=== PATIENT | female | born 1960 | race Caucasian/White ===

== ENCOUNTER 2018-03-09 01:07 | Outpatient (CLI) | payer OTHER, SELFPAY ==
--- NOTE | 2018-03-09 14:05 | MERGE_ITS ---
*[facility]* *[facility]* [address] [place] [address] Date of study: 03/09/2018 Transthoracic Echocardiography M-mode, complete 2D, complete spectral Doppler, and color Doppler *STUDY CONCLUSIONS* Summary: 1. Left ventricle: The cavity size was normal. Systolic function was hyperdynamic. The estimated ejection fraction was 65-70%. Diastolic parameters were normal. 2. Aortic valve: There was mild regurgitation. 3. Mitral valve: There was mild regurgitation. 4. Left atrium: The atrium was mildly dilated. 5. Right ventricle: The cavity size was normal. Wall thickness was normal. Systolic function was normal. 6. Atrial septum: No defect or patent foramen ovale was identified. 7. Tricuspid valve: There was mild-moderate regurgitation. 8. Pulmonary arteries: Pulmonary systolic pressure was in the range of 25mm Hg to 35mm Hg. 9. Inferior vena cava: The vessel was patent and normal in size. The respirophasic diameter changes were in the normal range (greater than or equal to 50%), consistent with normal central venous pressure. *PATIENT PRESENTATION* Height: 162.6cm ((64in) ) S/D Pressure: 123 / 83 Weight: 67.1kg ((147.7lb) ) BSA: 1.75m^2 Test start time: 02:30 PM. Test stop time: 03:30 PM. PERFORMING Unknown REFERRING Leon Mary PERFORMING [facility] GR[employer] LAP Luzma Gomez RT (R)(CT), [facility] ORDERING Mateus Heller REFERRING Mateus Heller *PROCEDURE DATA* Procedure information: The patient was identified by two identifiers. This study was interpreted by [facility]. Pertinent images and digital data are archived for permanent storage and are available for subsequent review. No prior study was available for comparison. Study status: Routine. Transthoracic echocardiography. M-mode, complete 2D, complete spectral Doppler, and color Doppler. A Transthoracic Echocardiogram was performed. Scanning was performed from the parasternal, apical, subcostal, and suprasternal notch acoustic windows. Images were obtained using an [id number] cardiac ultrasound machine. Image quality was adequate. Study completion: The patient tolerated the procedure well. History: PMH: Eval cardiac anatomy and function prior to EP study and SVT ablation. supraventricular tachycardia. *CARDIAC ANATOMY* Left ventricle: The cavity size was normal. Systolic function was hyperdynamic. The estimated ejection fraction was 65-70%. Diastolic parameters were normal. There was no evidence of elevated ventricular filling pressure by Doppler parameters. Aortic valve: Trileaflet. Doppler: There was no stenosis. There was mild regurgitation. VTI ratio of LVOT to aortic valve: 0.64. Valve area (VTI): 2cm^2. Indexed valve area (VTI): 1.2cm^2/m^2. Peak velocity ratio of LVOT to aortic valve: 0.63. Valve area (Vmax): 2cm^2. Indexed valve area (Vmax): 1.1cm^2/m^2. Mean velocity ratio of LVOT to aortic valve: 0.66. Valve area (Vmean): 2.1cm^2. Indexed valve area (Vmean): 1.2cm^2/m^2. Mean gradient (S): 4.9mm Hg. Peak gradient (S): 8.2mm Hg. Aorta: Aortic root: The aortic root was normal in size. Ascending aorta: The ascending aorta was normal in size. Mitral valve: Doppler: There was no evidence for stenosis. There was mild regurgitation. Valve area by pressure half-time: 6cm^2. Indexed valve area by pressure half-time: 3.4cm^2/m^2. Peak gradient (D): 4mm Hg. Left atrium: The atrium was mildly dilated. Atrial septum: No defect or patent foramen ovale was identified. Right ventricle: The cavity size was normal. Wall thickness was normal. Systolic function was normal. Pulmonic valve: Doppler: There was no evidence for stenosis. There was no significant regurgitation. Peak gradient (S): 3.8mm Hg. Tricuspid valve: Doppler: There was mild-moderate regurgitation. Pulmonary artery: Poorly visualized. Pulmonary systolic pressure was in the range of 25mm Hg to 35mm Hg. Right atrium: The atrium was normal in size. Pericardium: There was no pericardial effusion. Systemic veins: Inferior vena cava: Well visualized. The vessel was patent and normal in size. The respirophasic diameter changes were in the normal range (greater than or equal to 50%), consistent with normal central venous pressure. Baseline ECG: Normal sinus rhythm. Measurements Left ventricle Value Reference LV ID, ED, PLAX 4.2 cm 3.5 - 6.0 LV ID, ES, PLAX 2.5 cm 2.1 - 4.0 LV PW thickness, ED, PLAX 1.1 cm LV end-diastolic volume, 1-p A2C 79 ml LV ejection fraction, 1-p A2C 70 % LV end-diastolic volume, 1-p A4C 81 ml LV ejection fraction, 1-p A4C 68 % LV e', lateral 0.078 m/sec LV E/e', lateral 13 LV e', medial 0.078 m/sec LV E/e', medial 13 LV e', average 0.078 m/sec LV E/e', average 13 Ventricular septum Value Reference IVS thickness, ED, PLAX 1.0 cm LVOT Value Reference LVOT ID, A-P 2.0 cm LVOT area 3.2 cm^2 LVOT peak velocity, S 0.9 m/sec LVOT mean velocity, S 0.71 m/sec LVOT VTI, S 23.0 cm LVOT peak gradient, S 3.3 mm Hg LVOT mean gradient, S 2.1 mm Hg Stroke volume (SV), LVOT DP 73 ml Stroke index (SV/bsa), LVOT DP 41 ml/m^2 Aortic valve Value Reference Aortic valve peak velocity, S 1.4 m/sec Aortic valve mean velocity, S 1.07 m/sec Aortic valve VTI, S 36.0 cm Aortic mean gradient, S 4.9 mm Hg Aortic peak gradient, S 8.2 mm Hg VTI ratio, LVOT/AV 0.64 Aortic valve area, VTI 2 cm^2 Velocity ratio, peak, LVOT/AV 0.63 Aortic valve area, peak velocity 2 cm^2 Velocity ratio, mean, LVOT/AV 0.66 Aortic valve area, mean velocity 2.1 cm^2 Aortic valve area/bsa, mean velocity 1.2 cm^2/m^2 Aorta Value Reference Aortic root ID, ED 2.9 cm Ascending aorta ID, A-P, S 3.5 cm RVOT Value Reference RVOT VTI, S 21.2 cm Left atrium Value Reference LA ID, A-P, ES 3.0 cm LA ID/bsa, A-P 1.7 cm/m^2 <=2.2 LA area, ES, A4C 21.6 cm^2 8.8 - 23.4 LA area, ES, A2C 18 cm^2 LA volume/bsa, ES, 1-p A4C 42 ml/m^2 LA volume, ES, 2-p 55 ml LA volume/bsa, ES, 2-p 31 ml/m^2 LA/aortic root ratio 1.01 Mitral valve Value Reference Mitral E-wave peak velocity 1 m/sec Mitral A-wave peak velocity 0.47 m/sec Mitral deceleration time (L) 127 ms 150 - 230 Mitral pressure half-time 37 ms Mitral peak gradient, D 4 mm Hg Mitral E/A ratio, peak 2.12 Mitral valve area, PHT, DP 6 cm^2 Pulmonary veins Value Reference Pulmonary vein peak velocity, S 0.49 m/sec Pulmonary vein peak velocity, D 0.65 m/sec Pulmonary vein velocity ratio, peak, 0.75 S/D Pulmonary vein A-wave reversal peak 0.44 m/sec velocity Pulmonary vein A-wave reversal 135 ms duration Tricuspid valve Value Reference Tricuspid regurg peak velocity 2.6 m/sec Tricuspid peak RV-RA gradient 26.6 mm Hg Right atrium Value Reference RA area, ES, A4C 18.4 cm^2 8.3 - 19.5 Pulmonic valve Value Reference Pulmonic peak gradient, S 3.8 mm Hg Legend: (L) and (H) willem values outside specified reference range. I have personally reviewed the images and have reviewed and edited the reported findings. Electronically signed by Anderson Rdz MD 03/10/2018 11:24
== END 2018-03-09 01:08 ==
PROVIDERS: PCP Family Medicine
DX: I47.1 Supraventricular tachycardia (principal); I08.3 Combined rheumatic disorders of mitral, aortic and tricuspid valves
CPT/HCPCS: 93306

== ENCOUNTER 2018-10-14 13:40 | Emergency (ER) | payer OTHER, SELFPAY ==
[2018-10-14 13:44] VITALS: BP 157/106; PULSE 68; RESP 14; TEMP 36.3; O2SAT 96
[2018-10-14 14:09] LABS: Absolute Basophil Count 0.02 k/cumm (0.0-0.2); Absolute Eosinophil Count 0.16 k/cumm (0.0-0.7); Absolute Lymphocyte Count 1.67 k/cumm (1.2-3.4); Absolute Monocyte Count 0.42 k/cumm (0.11-0.7); Absolute Neutrophil Count 2.84 k/cumm (1.2-6.7); Basophils % 0.4; Eosinophils % 3.1; HCT 42.1 % (36.0-46.0); HGB 14.4 g/dL (12.0-15.5); Lymphocytes % 32.7; Mean Corp. HGB Concentration 34.2 g/dL (32.0-36.0); Mean Corpuscular Volume 87.7 fL (80-95); Mean Platelet Volume 9.5 fL (8.0-11.0); Monocytes % 8.2; Neutrophils % 55.6; Platelet Count 217 x1000/uL (130-400); RBC Distribution Width 13.2 % (11.7-14.6); White Blood Cell Count 5.11 k/cumm (4.4-10.8)
[2018-10-14] MEDS: methylPREDNISolone SUCC 125 MG VIAL IVP (14:18)
[2018-10-14] MEDS: diphenhydrAMINE 25 MG CAP PO (14:18)
[2018-10-14] MEDS: Normal Saline 1,000 ML 1000 ML IV (14:19)
[2018-10-14] MEDS: Prochlorperazine 10 MG/2 ML VIAL IVP (14:19)
[2018-10-14 14:25] LABS: PTT Activated 24.1 sec (21.0-31.4); Prothrombin Time 9.6 sec (9.3-11.0)
[2018-10-14 14:26] VITALS: RESP 18
--- NOTE | 2018-10-14 14:33 | ED.GENADUL_ITS ---
Discharge Plan Disposition Patient Disposition: HOME Condition: Good Discharge Details Chief Complaint: CVA/TIA Clinical Impression: Headache, Tingling Primary Care Provider: Kevin Shi ED Provider: Rafael Meng Home Meds and New Rx's Prescriptions: No Action metoprolol tartrate 25 MG tablet 25 mg PO BID Qty: 0 RF: 0 Discharge Instructions Instructions: General Headache (ED) Additional Instructions: If you notice any worsening of your symptoms, or any new symptoms such as vomiting, diarrhea, fever, chills, shortness of breath, chest pain, numbness, weakness, or fainting , please return immediately to the emergency department for reevaluation. Please follow up with your primary care provider as soon as possible for reassessment and reevaluation. As always, it was a pleasure participating in your medical care today. Referrals: Kevin Shi [Primary Care Provider] - Medical Decision Making This is a pleasant 4-year-old female who presents with slightly atypical symptoms. The patient states that she has had a mild headache for the last 4 days, it has been generalized on the top of her head. It is aching in nature. He has no red flags of associated neck pain fever chills or worse headache of her life. Roughly 1 hour ago she had slight worsening of the headache, brief shortness of breath, and left arm tingling and pain. She had no severe chest pain. She has no historical component or risk factors for PE or dissection. She took an Excedrin and the majority of her symptoms all notably improved. Currently she is relatively asymptomatic. Physical exam demonstrates no concerning abnormalities, no neurologic defects, and no signs of vascular compromise. Vital signs are reassuring. With the nature of the patient's atypical symptoms that may certainly be a complex migraine, anxiety, or a cardiac vascular etiology. We will get a CT scan to evaluate for acute stroke, as well as dissection or PE. We will rehydrate, treat her headache with a limited migraine cocktail, and reassess after rehydration. 4:22 PM Patient is feeling much better on reassessment, and her symptoms have notably resolved. The patient's laboratory workup has returned normal, no white count, normal electrolytes except for slightly low potassium at 3.3 which was corrected. Normal renal function. Troponin benign. TSH normal. EKG benign. CT angios the head neck and chest revealed no acute process or abnormality. Patient is feeling much better. She continues to demonstrate no neurologic deficits. She does have a very mild headache still present, no clinical signs or evidence of meningitis. With a normal neurologic exam and a benign workup, I do feel that the patient signs and symptoms are inconsistent with stroke, CVA, or TIA, and more consistent with atypical migraine versus mild dehydration. At this time I feel that the patient be safely discharged home with close follow-up with the primary care provider. I discussed red flags which return the importance of close follow-up and patient family understand I have extensively reviewed the treatment plan and discharge instructions with the patient. I have addressed all patient concerns at this time. The patient was made aware of what symptoms to monitor for that would warrant a return to the emergency department. Discussed the plan with the patient, they demonstrate verbal understanding and agreement with our assessment and plan at this time. EKG 13: 54 Rate 69, intervals normal, sinus rhythm, RSR in V1, inverted T waves in V1, atypical T wave morphology in V3 and lead III, no significant ST elevations or depressions, no Q waves. Findings: Right internal carotid artery: Unremarkable. Intracranial segment is patent with no significant stenosis. No aneurysm. Right anterior cerebral artery: Unremarkable. No occlusion or significant stenosis. No aneurysm. Right middle cerebral artery: Unremarkable. No occlusion or significant stenosis. No aneurysm. Right posterior cerebral artery: Unremarkable. No occlusion or significant stenosis. No aneurysm. Right vertebral artery: Dominant right vertebral artery with patent left vertebral artery. Left internal carotid artery: Unremarkable. Intracranial segment is patent with no significant stenosis. No aneurysm. Left anterior cerebral artery: Unremarkable. No occlusion or significant stenosis. No aneurysm. Left middle cerebral artery: Unremarkable. No occlusion or significant stenosis. No aneurysm. Left posterior cerebral artery: Unremarkable. No occlusion or significant stenosis. No aneurysm. Left vertebral artery: Unremarkable. No occlusion or significant stenosis. No aneurysm. Basilar artery: Unremarkable. No occlusion or significant stenosis. No aneurysm. Other vasculature: Mild calcified intracranial atherosclerotic vessel disease. Venous contamination at the level of the [place]. Patent anterior communicating artery. HEAD: Brain: Unremarkable. No hemorrhage. No significant white matter disease. No edema. Ventricles: Normal. No ventriculomegaly. Bones/joints: Unremarkable. No acute fracture. Sinuses: Visualized sinuses are normal. No fluid levels. Mastoid air cells: Visualized mastoids are normal. No mastoid effusion. Soft tissues: Unremarkable. Impression: No acute findings. Findings: VASCULATURE: Right common carotid artery: Normal. No significant stenosis. No dissection or occlusion. Right internal carotid artery: No ICA stenosis by NASCET/SRU criteria. Right external carotid artery: Normal. No occlusion or significant stenosis. Right vertebral artery: Dominant right vertebral artery with patent left vertebral artery. Left common carotid artery: Normal. No significant stenosis. No dissection or occlusion. Left internal carotid artery: Normal. Extracranial segment is patent with no significant stenosis. No dissection or occlusion. Left external carotid artery: Normal. No occlusion or significant stenosis. Left vertebral artery: Normal. No significant stenosis. No dissection or occlusion. NECK: Bones/joints: Moderate multilevel degenerative changes including degenerative disc disease, spondylosis and facet degenerative changes. Soft tissues: Normal. No significant soft tissue swelling. Dental: Examination is limited secondary to metallic artifact from dental fillings and/or dental hardware. Impression: 1. Dominant right vertebral artery with patent left vertebral artery. 2. No ICA stenosis by NASCET/SRU criteria. COMMENT: Reference per NASCET criteria for degree of stenosis: Mild: less than 50% stenosis. Moderate: 50-69% stenosis. Severe: 70-94% stenosis. Near occlusion: 95-99% stenosis. Dictated and Authenticated by: Anderson Wright MD. Ordering:JENNIE Hall MD FINDINGS: Pulmonary arteries: No pulmonary embolus or aortic dissection. Aorta: Normal. No aortic aneurysm. No aortic dissection. Great vessels off aortic arch: Calcification of the thoracic aorta and/or great vessels consistent with atherosclerotic vessel disease. Lungs: Left discoid atelectasis and/or scarring. Pleural space: Normal. No pneumothorax. No pleural effusion. Heart: Normal. No cardiomegaly. No pericardial effusion. Lymph nodes: Unremarkable. No enlarged lymph nodes. Bones/joints: Unremarkable. No acute fracture. Soft tissues: Unremarkable. IMPRESSION: No pulmonary embolus or aortic dissection. Dictated and Authenticated by: Anderson Wright MD. Ordering:JENNIE Hall MD HPI General Date/Time Provider Initiated Documentation: 10/14/18 13:52 . HPI Narrative: This is a pleasant 58-year-old female with a past medical history of hypertension, and occasional headaches, who comes from [place] originally, who presents today for evaluation of headache and left arm tingling. Patient states that she has had a mild headache for the last 4 days. the patient denies any headache red flags of worst headache of life, thunderclap headache, neck pain, fever, chills, concerning family history of polycystic kidney disease, Marfan syndrome, Bill-Danlos syndrome, abdominal aortic aneurysm, aortic dissection, or intracranial aneurysm. The patient states that headache was mild, but continued than 1 hour ago she had slight worsening of the headache, in conjunction with tingling in her left arm, as well as subjective pain. She also had mild associated shortness of breath but denies any significant chest pain, pleuritic chest pain, or tearing sensation in chest. The patient took an Excedrin, and her arm symptoms and headache notably improved. She now describes it as a 2 out of 10. She denies any visual changes, vomiting, diarrhea, or other complaints. She denies any recent surgeries, IV or illicit drug use, or pertinent family history. Related Data Home Medications Medication Instructions Recorded Confirmed metoprolol tartrate 25 mg PO BID #0 11/23/17 10/14/18 Previous Rx's Medication Instructions Recorded metoprolol tartrate 25 mg PO BID #0 11/23/17 Allergies Allergy/AdvReac Type Severity Reaction Status Date / Time ? some antibiotic given for Allergy Severe rash, Uncoded 10/14/18 14:25 oral surgery 10 years ago couldn't stand on feet,and got sick General Stated Complaint: CVA/TIA QUINCY: 2 Review of Systems Review of Systems All systems reviewed & are unremarkable except as noted in HPI and below PFSH Medical History Hypertension Surgical History Augmentation mammoplasty Bunion Removal Colonoscopy (12/16/10) Oral surgery (07/17/06) Social History Smoking/Tobacco Use Status: Never Alcohol Intake: never Drug use: Never Do you feel safe at home: Yes Do you feel safe in your relationship?: Yes Exam Narrative Exam Narrative: 1.Const: Well-nourished, Well-developed, appearing stated age 2.Eyes: PERRL, no conjunctival injection, and symmetrical lids. 3.ENT: Atraumatic external nose and ears. Moist MM. Neck: Symmetric, trachea midline, No thyromegaly. Patient demonstrates good movement of cervical neck. There is no nuchal rigidity, no nuchal tenderness. Patient is able to flex the neck without any difficulty or significant pain. Negative Kernig's and Brudzinski sign. 4.CVS: +S1/S2, No murmurs or gallops. Peripheral pulses 2+ and equal in all extremities. Brisk capillary refill in all extremities. 5.RESP: Unlabored respiratory effort. Clear to auscultation bilaterally. No wheezes rales or rhonchi 6.GI: Soft, Nontender/Nondistended, No hepatosplenomegaly. No guarding or rebound. 7.MSK: Normocephalic/Atraumatic, Extremities w/o deformity or ttp No cyanosis or clubbing, Normal movement of all extremities. Capillary refill is brisk in all fingers, dorsalis pedis, posterior tibial and radial pulses are +2 bilaterally. 8.Skin: Warm, Dry. No rashes or lesions. 9.Neuro: deputy assessor II-XII grossly intact. Sensation grossly intact, no focal neurologic deficits. All 6 cardinal planes of vision are fully intact. No evidence of rotatory or vertical nystagmus. The patient demonstrated a normal [id number], good dexterity. There was no evidence of dysdiadochokinesia. Patient was able to ambulate without difficulty. There was no wide-based gait. Romberg, and [id number] are both normal on testing. Sensation was intact bilaterally as well as muscle strength bilaterally for all extremities. Patient was able to verbalize butter cup with no slurring, or miss pronunciation. 10.Psych: (AAO) x3. Appropriate mood and affect Course Vital Signs Temperature 36.3 C L 10/14/18 13:44 Pulse 68 10/14/18 13:44 Respiratory Rate 14 10/14/18 13:44 Blood Pressure 157/106 H 10/14/18 13:44 Pulse Oximetry 96 10/14/18 13:44 Temperature 36.3 C L 10/14/18 13:44 Temperature Source Temporal Artery Scan 10/14/18 13:44 Pulse 68 10/14/18 13:44 Respiratory Rate 14 10/14/18 13:44 Blood Pressure 157/106 H 10/14/18 13:44 Blood Pressure Position Sitting 10/14/18 13:44 Pulse Oximetry 96 10/14/18 13:44 Oxygen Delivery Method Room Air 10/14/18 13:44 Oxygen Flow Rate 0 10/14/18 13:44 Pain Level 3 10/14/18 13:44 Lab/Test Results Lab/Test Results: Laboratory Tests Range/Units 10/14/18 14:04 WBC (4.4-10.8) k/cumm 5.11 RBC (4.00-5.20) m/cumm 4.80 Hgb (12.0-15.5) g/dL 14.4 Hct (36.0-46.0) % 42.1 MCV (80-95) fL 87.7 MCH (27.0-33.0) pg 30.0 MCHC (32.0-36.0) g/dL 34.2 RDW (11.7-14.6) % 13.2 Plt Count (130-400) x1000/uL 217 MPV (8.0-11.0) fL 9.5 Immature Gran % 0.0 Neutrophils % 55.6 Lymphocytes % 32.7 Monocytes % 8.2 Eosinophils % 3.1 Basophils % 0.4 Absolute Neutrophils (1.2-6.7) k/cumm 2.84 Absolute Lymphocytes (1.2-3.4) k/cumm 1.67 Absolute Monocytes (0.11-0.7) k/cumm 0.42 Absolute Eosinophils (0.0-0.7) k/cumm 0.16 Absolute Basophils (0.0-0.2) k/cumm 0.02
[2018-10-14 14:36] LABS: ALT 33 U/L (12-78); AST 24 U/L (15-37); Alkaline Phosphatase 73 U/L (46-116); Anion Gap 10.3 mmol/L (3-11); BUN 14 mg/dL (7-18); Bilirubin, Total 0.4 mg/dL (0.2-1.0); CO2 29.7 mmol/L (21.0-32.0); CREATININE 0.73 mg/dL (0.55-1.02); Calcium 9.1 mg/dL (8.5-10.1); Chloride 99 mmol/L (98-107); Glucose 92 mg/dL (70-100); Magnesium 1.9 mg/dL (1.8-2.4); Potassium 3.3 mmol/L (3.5-5.1); Sodium 139 mmol/L (136-145); TSH (W/Ref FT4) 1.92 uIU/mL (0.358-3.74); Total Protein 7.6 g/dL (6.4-8.2)
[2018-10-14 14:40] LABS: Troponin I < 0.02 ng/mL (0.00-0.06)
[2018-10-14] MEDS: Omnipaque 350 MG/ML 100 ML BTL 85 ML IJ (15:39)
[2018-10-14] MEDS: Omnipaque 350 MG/ML 50 ML BTL IJ (15:43)
--- NOTE | 2018-10-14 15:44 | DI.CT_ITS ---
SYMPTOM/DIAGNOSIS: LT ARM TINGLING, SOB, HEADACHE CRANIAL CT (WITHOUT CONTRAST): A noncontrast cranial CT was performed. The ventricular system is normal in appearance. There is no evidence of an intracranial mass lesion. There is no evidence of a subdural or epidural hematoma. No focal areas of decreased attenuation are seen. CONCLUSION: Normal noncontrast Cranial CT. CTA NECK AND HEAD: CT angiography was performed with multi slice acquisition and multi planar and 3D reconstruction. CT angiography of the cervicocranial region was performed with intravenous infusion of 85 cc's of Omnipaque 350. Please see accompanying chest CT angiography for findings in the chest including aortic arch. The visualized aortic arch and great vessels are unremarkable. There is normal appearance of the common carotid arteries bilaterally with no evidence of stenosis or aneurysm. Internal and external carotid arteries appear normal bilaterally with no evidence of stenosis or aneurysm formation. No cervical mass or adenopathy is seen. Tracheal laryngeal structures appear intact. Intracranial internal carotid arteries appear normal bilaterally with no evidence of aneurysm or stenosis. Anterior cerebral, middle cerebral and posterior cerebral arteries and major branches are unremarkable bilaterally with no evidence of aneurysm or stenosis. CONCLUSION: Negative CT angiography neck and head. CTA CHEST: CT angiography was performed with multi slice acquisition and multi planar and 3D reconstruction. CT angiography of the chest was performed with intravenous infusion of 50 cc's of Omnipaque 350. The pulmonary arteries are not ideally opacified but no central pulmonary embolus is seen. Aorta is of normal diameter with minimal atheromatous change and no evidence of dissection or aneurysm. No mediastinal mass or adenopathy is seen. The lungs are clear except for minimal changes of scarring. No pleural effusion or pleural based mass seen. Images obtained through the upper abdomen show unremarkable appearance of visualized portions of liver, spleen, pancreas, adrenals and kidneys. CONCLUSION: No acute pulmonary abnormality.
--- NOTE | 2018-10-14 15:48 | DI.VRAD_ITS ---
EXAM: CT Angiography Head Without And With Contrast EXAM DATE/TIME: 10/14/2018 1:57 PM CLINICAL HISTORY: 58 years old, female; Signs and symptoms; Headache and weakness; Patient HX: Left arm tingleness. [facility]. SOB; Additional info: Pe study also performed TECHNIQUE: Imaging protocol: Axial computed tomographic angiography images of the head without and with intravenous contrast using CT angiography protocol. Coronal and sagittal reformatted images were created and reviewed. 3D rendering: MIP and 3D reconstructed images were created and reviewed. Radiation optimization: All CT scans at this facility use at least one of these dose optimization techniques: automated exposure control; mA and/or kV adjustment per patient size (includes targeted exams where dose is matched to clinical indication); or iterative reconstruction. Contrast material: omni 350 Contrast volume: 85 ml Contrast route: iv COMPARISON: No relevant prior studies available. FINDINGS: Right internal carotid artery: Unremarkable. Intracranial segment is patent with no significant stenosis. No aneurysm. Right anterior cerebral artery: Unremarkable. No occlusion or significant stenosis. No aneurysm. Right middle cerebral artery: Unremarkable. No occlusion or significant stenosis. No aneurysm. Right posterior cerebral artery: Unremarkable. No occlusion or significant stenosis. No aneurysm. Right vertebral artery: Dominant right vertebral artery with patent left vertebral artery. Left internal carotid artery: Unremarkable. Intracranial segment is patent with no significant stenosis. No aneurysm. Left anterior cerebral artery: Unremarkable. No occlusion or significant stenosis. No aneurysm. Left middle cerebral artery: Unremarkable. No occlusion or significant stenosis. No aneurysm. Left posterior cerebral artery: Unremarkable. No occlusion or significant stenosis. No aneurysm. Left vertebral artery: Unremarkable. No occlusion or significant stenosis. No aneurysm. Basilar artery: Unremarkable. No occlusion or significant stenosis. No aneurysm. Other vasculature: Mild calcified intracranial atherosclerotic vessel disease. Venous contamination at the level of the [place]. Patent anterior communicating artery. HEAD: Brain: Unremarkable. No hemorrhage. No significant white matter disease. No edema. Ventricles: Normal. No ventriculomegaly. Bones/joints: Unremarkable. No acute fracture. Sinuses: Visualized sinuses are normal. No fluid levels. Mastoid air cells: Visualized mastoids are normal. No mastoid effusion. Soft tissues: Unremarkable. IMPRESSION: No acute findings. EXAM: CT Angiography Neck With Contrast EXAM DATE/TIME: 10/14/2018 1:57 PM CLINICAL HISTORY: 58 years old, female; Signs and symptoms; Headache and weakness; Patient HX: Left arm tingleness. COX. SOB; Additional info: Pe study also performed TECHNIQUE: Imaging protocol: Axial computed tomographic angiography images of the neck with intravenous contrast using CT angiography protocol. Coronal and sagittal reformatted images were created and reviewed. 3D rendering: MIP and 3D reconstructed images were created and reviewed. Radiation optimization: All CT scans at this facility use at least one of these dose optimization techniques: automated exposure control; mA and/or kV adjustment per patient size (includes targeted exams where dose is matched to clinical indication); or iterative reconstruction. COMPARISON: No relevant prior studies available. FINDINGS: VASCULATURE: Right common carotid artery: Normal. No significant stenosis. No dissection or occlusion. Right internal carotid artery: No ICA stenosis by NASCET/SRU criteria. Right external carotid artery: Normal. No occlusion or significant stenosis. Right vertebral artery: Dominant right vertebral artery with patent left vertebral artery. Left common carotid artery: Normal. No significant stenosis. No dissection or occlusion. Left internal carotid artery: Normal. Extracranial segment is patent with no significant stenosis. No dissection or occlusion. Left external carotid artery: Normal. No occlusion or significant stenosis. Left vertebral artery: Normal. No significant stenosis. No dissection or occlusion. NECK: Bones/joints: Moderate multilevel degenerative changes including degenerative disc disease, spondylosis and facet degenerative changes. Soft tissues: Normal. No significant soft tissue swelling. Dental: Examination is limited secondary to metallic artifact from dental fillings and/or dental hardware. IMPRESSION: 1. Dominant right vertebral artery with patent left vertebral artery. 2. No ICA stenosis by NASCET/SRU criteria. COMMENT: Reference per NASCET criteria for degree of stenosis: Mild: less than 50% stenosis. Moderate: 50-69% stenosis. Severe: 70-94% stenosis. Near occlusion: 95-99% stenosis. Dictated and Authenticated by: Anderson Wright MD. Ordering:JENNIE Hall MD
--- NOTE | 2018-10-14 15:52 | DI.VRAD_ITS ---
EXAM: CT Angiography Chest With Contrast EXAM DATE/TIME: 10/14/2018 1:57 PM CLINICAL HISTORY: 58 years old, female; Signs and symptoms; Shortness of breath; Patient HX: SOB. Cta head/neck performed; Additional info: Pe study also performed TECHNIQUE: Imaging protocol: Axial computed tomographic angiography images of the chest with intravenous contrast using CT angiography protocol. Coronal and sagittal reformatted images were created and reviewed. 3D rendering: MIP and 3D reconstructed images were created and reviewed. Radiation optimization: All CT scans at this facility use at least one of these dose optimization techniques: automated exposure control; mA and/or kV adjustment per patient size (includes targeted exams where dose is matched to clinical indication); or iterative reconstruction. Contrast material: omni 350 Contrast volume: 50 ml Contrast route: iv COMPARISON: CR ABD FLAT UPRIGHT PA CHEST 04/25/2016 7:25 PM FINDINGS: Pulmonary arteries: No pulmonary embolus or aortic dissection. Aorta: Normal. No aortic aneurysm. No aortic dissection. Great vessels off aortic arch: Calcification of the thoracic aorta and/or great vessels consistent with atherosclerotic vessel disease. Lungs: Left discoid atelectasis and/or scarring. Pleural space: Normal. No pneumothorax. No pleural effusion. Heart: Normal. No cardiomegaly. No pericardial effusion. Lymph nodes: Unremarkable. No enlarged lymph nodes. Bones/joints: Unremarkable. No acute fracture. Soft tissues: Unremarkable. IMPRESSION: No pulmonary embolus or aortic dissection. Dictated and Authenticated by: Anderson Wright MD. Ordering:JENNIE Hall MD
[2018-10-14] MEDS: Ketorolac 30 MG/ML VIAL (16:23)
[2018-10-14] MEDS: Potassium Chloride 20 MEQ TABCR 40 MEQ PO (16:23)
[2018-10-14 16:33] VITALS: BP 148/95; PULSE 71; RESP 16; TEMP 36.7; O2SAT 95
== END 2018-10-14 16:37 | disposition home or self-care (01) ==
PROVIDERS: Emergency Provider Student in an Organized Health Care Education/Training Program; PCP Family Medicine
DX: R51 Headache (principal); R20.2 Paresthesia of skin; I10 Essential (primary) hypertension
CPT/HCPCS: 36415; 70496; 70498; 71275; 80053; 93005; 96361; 96374; 96375; 99285; 70450; 83735; 84443; 84484; 85025; 85610; 85730; 93010; J0780; J1885; J2930; J3490; Q9967

== ENCOUNTER 2025-04-30 00:14 | Outpatient (CLI) | payer MEDICARE, OTHER, SELFPAY ==
--- NOTE | 2025-04-30 06:45 | DI.MRI_ITS ---
Exam(s) MR IAC BRAIN WO/W EXAM: MR IAC BRAIN WO/W CLINICAL HISTORY: Left sensorineural hearing loss,h90.42. TECHNIQUE: Multiplanar multisequence MRI of the brain and internal auditory canals was performed. CONTRAST MATERIAL: IV Contrast: 14 mL of Dotarem contrast administered. COMPARISON: CT CT BRAIN NECK CTA from 10/14/[address] HEAD WO from 10/14/2018 FINDINGS: VENTRICLES AND EXTRA AXIAL SPACES: Normal in size and morphology for the patient's age. HEMORRHAGE: None. CEREBRAL PARENCHYMA: No focus of restricted diffusion to suggest acute infarct. No space-occupying lesion identified. There are several areas of hyperintense signal seen in the white matter on the FLAIR and T2 weighted images most consistent with chronic microvascular ischemic disease. MIDLINE SHIFT: None. BRAINSTEM/CEREBELLUM: Normal. CALVARIUM: Normal. ENHANCEMENT: No suspicious enhancement identified. VISUALIZED PARANASAL SINUSES/MASTOIDS: There is mucosal thickening in the visualized paranasal sinuses. [place] OF CHEEK: Normal flow void. PITUITARY GLAND: Unremarkable. IAC/CP ANGLE: The internal auditory canals are within normal limits. The cerebellar pontine angles are unremarkable. No enhancing lesions are seen. Visualized portion of the facial nerves appear within normal limits. OTHER FINDINGS: None. IMPRESSION: 1. There is no evidence of an intracranial mass or enhancing lesion in the internal auditory canals or cerebellopontine angles. 2. Findings consistent with chronic microvascular ischemic disease. 3. No evidence of an acute infarct. DATA REPOSITORY:
[2025-04-30] MEDS: Gadoterate meglumine 20 ML SYRINGE IVP (09:47)
[2025-04-30] MEDS: Normal Saline Flush 10 ML SYR IVP (09:48)
== END 2025-04-30 00:34 ==
LOC: DI 00:14
PROVIDERS: PCP Family Medicine; Visit Provider Otolaryngology
DX: H90.42 Sensorineural hearing loss, unilateral, left ear, with unrestricted hearing on the contralateral side (principal)
CPT/HCPCS: 70553